=== PATIENT | male | born 1985 | race African-American/Black ===

== ENCOUNTER 2018-10-27 13:30 | Emergency (ER) | payer SELFPAY ==
[~2018-10-27] VITALS: Ht 177.8 cm; Wt 77.1 kg
[2018-10-27 14:07] VITALS: BP 148/85
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
[2018-10-27] MEDS ORDERED: KETOROLAC 30 MG/ML VIAL. IM ONE (15:15)
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
[2018-10-27] MEDS ORDERED: ORPH100T PO (15:53)
[2018-10-27] MEDS ORDERED: IBUPROFEN 200 MG TABLET. PO ONE (16:15)
== END 2018-10-27 16:04 | disposition home or self-care (01) ==
LOC: ER 13:30
DX: S20.211A Contusion of right front wall of thorax, initial encounter (principal); M54.6 Pain in thoracic spine; V43.62XA Car passenger injured in collision with other type car in traffic accident, initial encounter; Y93.89 Activity, other specified; Y92.410 Unspecified street and highway as the place of occurrence of the external cause; Y99.8 Other external cause status
CPT/HCPCS: 71101; 99283